=== PATIENT | female | born 1995 | race Caucasian/White ===

== ENCOUNTER 2019-07-15 21:44 | Emergency (ER) | payer BC, SELFPAY ==
[2019-07-15 21:48] VITALS: BP 109/89; PULSE 76; RESP 18; TEMP 36.8; O2SAT 99
--- NOTE | 2019-07-15 22:11 | ED.GENADUL_ITS ---
Discharge Plan Disposition Patient Disposition: HOME Discharge Details Chief Complaint: Orthopedic Clinical Impression: Gastrocnemius muscle strain Primary Care Provider: None,None ED Provider: Viet Altamirano Home Meds and New Rx's Prescriptions: No Action sertraline 25 mg Tablet 25 mg PO DAILY RF: 0 progesterone micronized 100 mg Capsule 100 mg PO DAILY RF: 0 clonazepam 0.5 MG tablet 0.5 mg PO PRN PRNRF: 0 Non-Formulary Medication 1 EACH Misc 1 tab PO DAILY RF: 0 pantoprazole 40 MG tablet,delayed release (DR/EC) 40 mg PO DAILY@0730 RF: 0 metoclopramide HCl 10 MG tablet 10 mg PO TID PRN (Reason: Nausea) Qty: 25 RF: 1 zolmitriptan 2.5 MG tablet,disintegrating 2.5 mg PO DAILY PRN (Reason: Headache) Qty: 10 RF: 2 Discharge Instructions Instructions: Muscle Strain (ED) Additional Instructions: His symptoms are most likely from a muscle strain to the right calf. Wear orthopedic boot as tolerated. Weight-bear as tolerated. Start taking Tylenol and Motrin regularly for pain. Return should symptoms of pain or swelling worsen. Follow-up with your primary care provider if your symptoms persist over the next week. Referrals: Tabatha Huang MD [ [facility] STAFF PHYSICIAN] - 1 week Medical Decision Making This is a nontoxic-appearing 24-year-old female presenting to the emergency department with a right calf injury. Mild swelling noted over the area of concern. [id number] ultrasound demonstrates no hypoechoic fluid. No evidence of DVT. She has a negative Quevedo test and has no pain or swelling along the Achilles tendon. Plan is to place her into a orthopedic boot with weight-bear instructions as tolerated. She will follow-up with a primary care provider should her symptoms persist over the next week. Tylenol Motrin to be taken for pain. Return precautions provided. HPI General Date/Time Provider Initiated Documentation: 07/15/19 22:10 . HPI Narrative: Patient is a 24-year-old female presenting to the emergency department with right calf pain status post injury just prior to arrival. Patient states that she was bending over and felt a sudden pop in her right calf. He locates the pain along the proximal medial aspect of the right calf. She has noted some swelling over the area. She also reports some tingling in her foot secondary to the injury. She denies any lower ankle pain. No pain over the Achilles. Related Data Home Medications Medication Instructions Recorded Confirmed Non-Formulary Medication 1 tab PO DAILY 01/18/18 07/15/19 clonazepam 0.5 mg PO PRN PRN 01/18/18 07/15/19 metoclopramide HCl 10 mg PO TID PRN #25 tab 01/19/18 07/15/19 pantoprazole 40 mg PO DAILY@0730 tabcr 01/19/18 07/15/19 zolmitriptan 2.5 mg PO DAILY PRN #10 tab.rapdis 01/19/18 07/15/19 progesterone micronized 100 mg PO DAILY 07/15/19 07/15/19 sertraline 25 mg PO DAILY 07/15/19 07/15/19 Previous Rx's Medication Instructions Recorded metoclopramide HCl 10 mg PO TID PRN #25 tab 01/19/18 pantoprazole 40 mg PO DAILY@0730 tabcr 01/19/18 zolmitriptan 2.5 mg PO DAILY PRN #10 tab.rapdis 01/19/18 Allergies Allergy/AdvReac Type Severity Reaction Status Date / Time No Known Allergies Allergy Unverified 07/15/19 21:52 General Stated Complaint: Orthopedic YOSSI: 4 Review of Systems Constitutional Constitutional: Denies fever(s) Cardiovascular Cardiovascular: Denies dyspnea Respiratory Respiratory: Denies dyspnea Musculoskeletal Musculoskeletal: Denies numbness and Reports tingling Neurologic Neurologic: Denies focal weakness, Denies numbness, Denies sensory deficit, Reports tingling and Denies paresthesias Hematologic/Lymphatic Hematologic/Lymphatic: Denies easy bleeding and Denies easy bruising [facility] Social History Smoking/Tobacco Use Status: Never Alcohol Intake: current Alcohol Intake frequency: holidays/special occasions only Alcohol type: wine Drug use: Never Substance use type: does not use Do you feel safe at home: Yes Do you feel safe in your relationship?: Yes Exam Const General: cooperative, healthy appearing and comfortable Resp Effort & Inspection: normal respiratory effort Cardio Pulses: normal peripheral pulses Skin Trauma: no lacerations or abrasions Neuro Motor: muscle tone normal throughout Sensory Exam: no sensory deficits noted Extrem Right lower extremity: lower leg Details: tenderness Location: of the posterior calf, localized swelling Location: of the proximal lower leg and no edema; no palpable cords Course Vital Signs Vital signs: Vital Signs Temperature 36.8 C 07/15/19 21:48 Pulse 76 07/15/19 21:48 Respiratory Rate 18 07/15/19 21:48 Blood Pressure 109/89 07/15/19 21:48 Pulse Oximetry 99 07/15/19 21:48 Temperature 36.8 C 07/15/19 21:48 Temperature Source Skin 07/15/19 21:48 Pulse 76 07/15/19 21:48 Respiratory Rate 18 07/15/19 21:48 Respiratory Effort 07/15/19 21:56 Blood Pressure 109/89 07/15/19 21:48 Blood Pressure Position Sitting 07/15/19 21:48 Pulse Oximetry 99 07/15/19 21:48 Oxygen Delivery Method Room Air 07/15/19 21:48 Oxygen Flow Rate 0 07/15/19 21:48 Pain Level 0 07/15/19 21:57
== END 2019-07-15 22:58 | disposition home or self-care (01) ==
LOC: ER 22:14
PROVIDERS: Emergency Provider Physician Assistant
DX: S86.811A Strain of other muscle(s) and tendon(s) at lower leg level, right leg, initial encounter (principal); X50.9XXA Other and unspecified overexertion or strenuous movements or postures, initial encounter
CPT/HCPCS: 29515; 99283; 99282; L4361

== ENCOUNTER 2020-04-23 16:38 | Outpatient (REF) | payer BC, SELFPAY ==
[2020-04-28 15:36] LABS: SARS-CoV-2 RNA Undetected (Undetected); SARS-CoV-2 Specimen Source Nasopharynx
== END 2020-04-23 16:58 ==
LOC: NCHCN 16:38
PROVIDERS: Visit Provider Nurse Practitioner Family
DX: Z11.59 Encounter for screening for other viral diseases (principal); J02.9 Acute pharyngitis, unspecified
CPT/HCPCS: U0003

== ENCOUNTER 2020-06-11 09:04 | Outpatient (CLI) | payer BC, SELFPAY ==
[2020-06-13 09:03] LABS: Patient Race White; SARS-CoV-2 RNA Undetected (Undetected); SARS-CoV-2 Specimen Source Nasopharynx
== END 2020-06-11 09:24 ==
PROVIDERS: Visit Provider Nurse Practitioner Family
DX: Z11.59 Encounter for screening for other viral diseases (principal)
CPT/HCPCS: U0003

== ENCOUNTER 2021-06-10 02:40 | Outpatient (CLI) | payer BC, SELFPAY ==
--- NOTE | 2021-06-10 | DI.RAD_ITS ---
Exam(s) XR FINGER RT MIDDLE EXAM: XR FINGER RT MIDDLE CLINICAL HISTORY: RT FINGER PAIN,M79.645. TECHNIQUE: 2D digital imaging was performed. COMPARISON: No exams were available for comparison FINDINGS: BONES: There is a lucency through the volar plate of the middle phalanx of the middle finger. This c ould represent a in acute or subacute fracture. Seen only on the lateral view. No additional fractu res seen.. No bony destructive lesion is seen. JOINTS: No dislocation present. SOFT TISSUE: Normal. IMPRESSION: Acute versus subacute fracture at the volar plate of the middle phalanx. DATA REPOSITORY: RADIATION DOSE DELIVERED:
== END 2021-06-10 03:00 ==
PROVIDERS: PCP Nurse Practitioner Family; Visit Provider Nurse Practitioner Family
DX: M79.644 Pain in right finger(s) (principal); S63.432A Traumatic rupture of volar plate of right middle finger at metacarpophalangeal and interphalangeal joint, initial encounter; X58.XXXA Exposure to other specified factors, initial encounter
CPT/HCPCS: 73140

== ENCOUNTER 2021-10-10 01:30 | Outpatient (CLI) | payer MEDICAID, SELFPAY ==
[2021-10-10 08:50] VITALS: BP 120/72; PULSE 68; RESP 22; TEMP 37.9; O2SAT 96
[2021-10-10] MEDS: Normal Saline 250 ML 30 ML IV (09:07)
[2021-10-10] MEDS: Normal Saline Flush 10 ML SYR IVP (09:08)
[2021-10-10 09:24] VITALS: BP 115/68; PULSE 64; RESP 20; TEMP 36.9; O2SAT 97
[2021-10-10 10:53] VITALS: BP 119/70; PULSE 62; RESP 128; TEMP 36.8; O2SAT 99
== END 2021-10-10 11:04 ==
LOC: INF 01:30
PROVIDERS: PCP Nurse Practitioner Family; Visit Provider Family Medicine
DX: U07.1 COVID-19 (principal)
CPT/HCPCS: 96365; Q0047

== ENCOUNTER 2021-12-02 17:06 | Outpatient (REF) | payer MEDICAID, SELFPAY ==
--- NOTE | 2021-12-02 16:30 | PAPFT_PTH ---
PATIENT: Vanessa Garcia LOC: [facility]#:[id number] AGE/SX: 26/F ROOM: RE12/02/[address]: Lilibeth Echavarria : 1995 BED: DIS: 12/02/2021 SPEC #: [id number] RECD: 12/03/21 13:06 STATUS: IGOR SHAH #: [id number] TARUN: 12/02/21 16:[address]: Lilibeth Echavarria DEPT: [facility] Cytology RECD BY: Maya León Tissues: 1 - CX/ENDOCX FOR PAP SMEARS Procedures: PAP THIN PREP/UVM Screening Comments: [id number] (CHLAMYDIA/GC)
[2021-12-04 15:30] LABS: Chlamydia Result Negative (Negative); GC Result Negative (Negative)
== END 2021-12-02 17:07 | disposition home or self-care (01) ==
LOC: NCHCN 17:06
PROVIDERS: PCP Nurse Practitioner Family; Visit Provider Nurse Practitioner Family
DX: Z12.4 Encounter for screening for malignant neoplasm of cervix (principal); Z11.3 Encounter for screening for infections with a predominantly sexual mode of transmission
CPT/HCPCS: 87491; 87591; 88142

== ENCOUNTER 2022-08-10 18:27 | Outpatient (REF) | payer MEDICAID, SELFPAY | END 2022-08-10 18:28 | disposition home or self-care (01) | LOC: NCHCN 18:27 | PROVIDERS: PCP Nurse Practitioner Family; Visit Provider Nurse Practitioner Family | DX: R35.0 Frequency of micturition (principal); N89.8 Other specified noninflammatory disorders of vagina | CPT/HCPCS: 87086; 87480; 87510; 87660 ==

== ENCOUNTER 2022-09-06 21:52 | Emergency (ER) | payer MEDICAID, SELFPAY ==
[2022-09-06 21:56] VITALS: BP 160/98; PULSE 81; RESP 18; TEMP 37.3; O2SAT 100
--- NOTE | 2022-09-06 22:09 | W.ED.GENAD ---
Discharge Plan Disposition Patient Disposition: Home Condition: Good Discharge Details Clinical Impression: Acute tonsillitis, Walking pneumonia Primary Care Provider: Lilibeth Echavarria ED Provider: Lenard iVllanueva Home Meds and New Rx's Prescriptions: New amoxicillin-pot clavulanate 875-125 mg tablet 1 tab PO BID 10 Days Qty: 20 0RF benzonatate 100 mg capsule 100 mg PO TID Qty: 30 0RF No Action sertraline 25 mg Tablet 25 mg PO DAILY progesterone micronized 100 mg Capsule 100 mg PO DAILY clonazepam 0.5 MG tablet 0.5 mg PO PRN PRN Non-Formulary Medication 1 EACH Misc 1 tab PO DAILY pantoprazole 40 MG tablet,delayed release (DR/EC) 40 mg PO DAILY@0730 0RF metoclopramide HCl 10 MG tablet 10 mg PO TID PRN (Reason: Nausea) Qty: 25 1RF zolmitriptan 2.5 MG tablet,disintegrating 2.5 mg PO DAILY PRN (Reason: Headache) Qty: 10 2RF Rx Instructions: may repeat after 2 hours x 1 if headache persists Discharge Instructions Instructions: Pharyngitis (ED), Community Acquired Pneumonia (ED) Additional Instructions: At this time you have evidence of both mild tonsillitis and suspected community-acquired pneumonia. Please take the antibiotic and the cough medicine as directed. Please gargle with salt water as needed for your throat. Take Tylenol and Motrin as needed for pain. If you notice worsening swelling in the back of your throat, worsening cough, or worsening symptoms please return immediately for reassessment. If you notice any worsening of your symptoms, or any new symptoms such as difficulty swallowing or drinking, vomiting, diarrhea, fever, chills, shortness of breath, chest pain, numbness, weakness, or fainting , please return immediately to the emergency department for reevaluation. Please follow up with your primary care provider as soon as possible for reassessment and reevaluation. As always, it was a pleasure participating in your medical care today. Referrals: Lilibeth Echavarria [Primary Care Provider] - Medical Decision Making 27-year-old female with a past medical history of migraines presents today for evaluation of 3 weeks of sore throat, and cough. Symptoms have been persisting, intermittent fever. She denies any hemoptysis. She denies any vomiting or diarrhea. She has been taking NyQuil and DayQuil but this has not been helping. She denies any history of blood clots or asthma. No other complaints at this time. Exam demonstrates mild tonsillar exudate bilaterally. With the patient's persisting cough, and her tonsillar symptoms, suspect bacterial pathogen at this point. Suspect walking pneumonia in conjunction with mild tonsillitis. Will give Augmentin for coverage, recommend Tylenol Motrin, will give Decadron here for persistent cough and tonsillar swelling, and Tessalon Perles for home. Discussed red flags for which to return. I have extensively reviewed the treatment plan and discharge instructions with the patient. I have addressed all patient concerns at this time. The patient was made aware of what symptoms to monitor for that would warrant a return to the emergency department. Discussed the plan with the patient, they demonstrate verbal understanding and agreement with our assessment and plan at this time. The documentation in this chart was dictated using [employer] dictation software. Please excuse any dictation errors. Antibiotic choice: We have chosen to give Augmentin here for the patient's pneumonia. Recent resistant pattern studies from our hospital as well as other local facilities including [facility] have both demonstrated significant resistance to azithromycin, and notable susceptibility to common community-acquired pneumonia organisms for both amoxicillin, and Augmentin. Sign Out No HPI General Date/Time Provider Initiated Documentation: 09/06/22 21:57. HPI Narrative: 27-year-old female with a past medical history of migraines presents today for evaluation of 3 weeks of sore throat, and cough. Symptoms have been persisting, intermittent fever. She denies any hemoptysis. She denies any vomiting or diarrhea. She has been taking NyQuil and DayQuil but this has not been helping. She denies any history of blood clots or asthma. No other complaints at this time. Related Data Home Medications Medication Instructions Recorded Confirmed Non-Formulary Medication 1 tab PO DAILY control 01/18/18 07/15/19 clonazepam 0.5 mg tablet 0.5 mg PO PRN PRN 01/18/18 07/15/19 metoclopramide HCl 10 mg tablet 10 mg PO TID PRN Nausea #25 tabs 01/19/18 07/15/19 pantoprazole 40 mg tablet,delayed 40 mg PO DAILY@0730 04/18/18 10/12/19 release zolmitriptan 2.5 mg disintegrating 2.5 mg PO DAILY PRN Headache ##10 01/19/18 07/15/19 tablet progesterone micronized 100 mg 100 mg PO DAILY 07/15/19 07/15/19 capsule sertraline 25 mg tablet 25 mg PO DAILY 07/15/19 07/15/19 amoxicillin 875 mg-potassium 1 tab PO BID 10 days #20 tabs 09/06/22 clavulanate 125 mg tablet benzonatate 100 mg capsule 100 mg PO TID #30 caps 09/06/22 Previous Rx's Medication Instructions Recorded metoclopramide HCl 10 mg tablet 10 mg PO TID PRN Nausea #25 tabs 01/19/18 pantoprazole 40 mg tablet,delayed 40 mg PO DAILY@0730 01/19/18 release zolmitriptan 2.5 mg disintegrating 2.5 mg PO DAILY PRN Headache ##10 01/19/18 tablet amoxicillin 875 mg-potassium 1 tab PO BID 10 days #20 tabs 09/06/22 clavulanate 125 mg tablet benzonatate 100 mg capsule 100 mg PO TID #30 caps 09/06/22 Allergies Allergy/AdvReac Type Severity Reaction Status Date / Time No Known Allergies Allergy Unverified 07/15/19 21:52 General Stated Complaint: Sorethroat YOSSI: 3 Review of Systems All systems reviewed & are unremarkable except as noted in HPI and below PFSH All Active Problems Acute tonsillitis (Acute) Walking pneumonia (Acute) Migraine variant (Acute) Social History Smoking/Tobacco Use Status: Never Smoking risk assessment performed?: Yes Alcohol Intake: current Alcohol Intake frequency: holidays/special occasions only Alcohol type: wine Drug use: Never Substance use type: does not use Do you feel safe at home: Yes Do you feel safe in your relationship?: Yes Exam Narrative Exam Narrative: 1.Const: Well-nourished, Well-developed, appearing stated age 2.Eyes: PERRL, no conjunctival injection, and symmetrical lids. 3.ENT: Atraumatic external nose and ears. Moist MM. Neck: Symmetric, trachea midline, No thyromegaly. Mild erythema in the posterior oropharynx, mild bilateral tonsillitis. Small tonsilliths. No signs of airway compromise, no peritonsillar abscesses on palpation of the posterior oropharynx. Uvula midline. 4.CVS: +S1/S2, No murmurs or gallops. Peripheral pulses 2+ and equal in all extremities. Brisk capillary refill in all extremities. 5.RESP: Unlabored respiratory effort. Clear to auscultation bilaterally. No wheezes rales or rhonchi 6.GI: Soft, Nontender/Nondistended, No hepatosplenomegaly. No guarding or rebound. 7.MSK: Normocephalic/Atraumatic, Extremities w/o deformity or ttp No cyanosis or clubbing, Normal movement of all extremities 8.Skin: Warm, Dry. No rashes or lesions. 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 Sensation grossly intact, no focal neurologic deficits. 10.Psych: (AAO) x3. Appropriate mood and affect Course Vital Signs Vital signs: Vital Signs Temperature 37.3 C 09/06/22 21:56 Pulse 81 09/06/22 21:56 Respiratory Rate 18 09/06/22 21:56 Blood Pressure 160/98 H 09/06/22 21:56 Pulse Oximetry 100 09/06/22 21:56 Temperature 37.3 C 09/06/22 21:56 Temperature Source Tympanic 09/06/22 21:56 Pulse 81 09/06/22 21:56 Respiratory Rate 18 09/06/22 21:56 Respiratory Effort 09/06/22 22:03 Blood Pressure 160/98 H 09/06/22 21:56 Blood Pressure Position Sitting 09/06/22 21:56 Pulse Oximetry 100 09/06/22 21:56 Oxygen Delivery Method Room Air 09/06/22 21:56 Oxygen Flow Rate 0 09/06/22 21:56 Pain Level 9 09/06/22 21:56
[2022-09-06] MEDS: Amox. 875/Clav. 125, 2 TABS/BTL 1 TAB PO (22:27)
[2022-09-06] MEDS: Dexamethasone 4 MG TAB 12 MG PO (22:28)
[2022-09-06] MEDS: Benzonatate 100 MG CAP PO (22:28)
== END 2022-09-06 22:28 | disposition home or self-care (01) ==
PROVIDERS: Emergency Provider Student in an Organized Health Care Education/Training Program; PCP Nurse Practitioner Family
DX: J03.90 Acute tonsillitis, unspecified (principal); J18.9 Pneumonia, unspecified organism
CPT/HCPCS: 99283; J8540